=== PATIENT | male | born 1980 | race Caucasian/White ===

== ENCOUNTER 2021-06-02 01:31 | Emergency (ER) | payer MEDICAID ==
[~2021-06-02] VITALS: Ht 165.1 cm; Wt 89.8 kg
--- NOTE | 2021-06-02 01:43 | NUR ---
Patient to ER bed 8 to gown for evaluation. Side rails up. Report given to GABBY CLIFFORD.
--- NOTE | 2021-06-02 01:44 | NUR ---
Came in ER ambulatory from home this 40 year old male, AAOX4, breathing spontaneously at room air, not in distress noted. With chief complaints of lower back pain for several days, denies trauma, known case hernia, no known allergy , vital signs stable
[2021-06-02 01:45] VITALS: BP_SYST 146
--- NOTE | 2021-06-02 01:46 | NUR ---
ER at bedside examining patient.
[2021-06-02] MEDS ORDERED: KETOROLAC TROMETHAMINE 60 MG/2 ML VIAL IM ONE (02:00)
[2021-06-02] MEDS ORDERED: CYCLOBENZAPRINE HCL 10 MG TABLET (FLEXERIL) PO ONE (02:00)
[2021-06-02] MEDS ORDERED: IBUP-1971 PO ×3 (02:00→10:50)
[2021-06-02] MEDS ORDERED: CYCL10TA24 PO ×3 (02:00→10:50)
--- NOTE | 2021-06-02 02:18 | NUR ---
Medications given as ordered, health teaching provided and verbalized understanding
[2021-06-02 02:25] VITALS: BP_SYST 146
--- NOTE | 2021-06-02 02:25 | NUR ---
Patient given written and verbal discharge instructions and verbalizes understanding. ER MD discussed with patient the results and treatment provided. Patient in stable condition. ID arm band. Rx of flexeril and motrin given. Patient educated on pain management and to follow up with PMD. Pain Scale 0/10. Opportunity for questions provided and answered. Medication side effect fact sheet provided.
== END 2021-06-02 02:25 | disposition home or self-care (01) ==
LOC: SED 01:31
DX: M54.5 Low back pain (principal); Z79.899 Other long term (current) drug therapy
CPT/HCPCS: 96372; 99283; J1885